=== PATIENT | male | born 1955 | race Caucasian/White ===

== ENCOUNTER 2018-04-12 18:18 | Emergency (ER) | payer OTHER ==
[2018-04-12] MEDS ORDERED: ONDANSETRON 4 MG/2 ML VIAL ONE (19:10)
[2018-04-12] MEDS ORDERED: KETOROLAC 30 MG/ML INJ ONE (19:10)
[2018-04-12 19:21] LABS: Urine Blood NEGATIVE (NEG); Urine Glucose NEGATIVE (NEG); Urine Protein NEGATIVE (NEG); Urine Specific Gravity 1.025 (1.005-1.030)
[2018-04-12 20:04] LABS: Urine Bacteria <20 /HPF (NONE SEEN); Urine Culture Reflex Order NOT NEEDED; Urine RBC <5 /HPF (NONE SEEN)
[2018-04-12 21:15] LABS: Absolute Lymphocytes (CBC) 0.8 K/uL (0.7-4.9); Absolute Monocytes 1.8 K/uL (0.1-1.3); Basophils % 0.2 % (0-1.3); Hematocrit 50.2 % (39.6-49.0)
[2018-04-12 21:18] LABS: Absolute Neutrophil 20.6 K/uL (1.8-8.0); Lymphocytes % 3.3 % (15.3-44.8); MPV 8.6 fL (7.6-11.3); Monocytes % 7.7 % (3.3-12.3); RBC Red Blood Cell Count 5.06 M/uL (4.33-5.43)
[2018-04-12 21:43] LABS: Albumin 3.9 g/dL (3.4-5.0); Bilirubin Direct 0.4 mg/dL (0-0.2); Bilirubin Total 1.1 mg/dL (0.2-1.0); Potassium 4.8 mmol/L (3.5-5.1); Protein, Total 8.2 g/dL (6.4-8.2)
[2018-04-12] MEDS ORDERED: NA CHLORIDE 0.9% 500 ML ONE (21:45)
[2018-04-12] MEDS ORDERED: NA CHLORIDE 0.9% 1,000 ML ONE ×2 (21:45→23:56)
[2018-04-12] MEDS ORDERED: MORPHINE 4 MG/ML SYR ONE (22:12)
[2018-04-12 22:29] LABS: Blood Morphology Comment NOT SEEN (NOT SEEN); Platelet Estimate ADEQ
[2018-04-12] MEDS ORDERED: METRONIDAZOLE 500mg IVPB 500 MG/100 ML BAG IV ONE (22:42)
[2018-04-12] MEDS ORDERED: CIPROFLOXACIN 400mg IV 400 MG/200 ML BAG IV ONE (22:42)
--- NOTE | 2018-04-12 23:04 | EDPHYS ---
Physician Documentation [facility] Name: Huey Jung Age: 62 yrs Sex: Male : 1955 Arrival Date: 04/12/2018 Time: 18:21 Bed 18 Private MD: ED Physician Shirley Frias HPI: 04/12 18:50 This 62 yrs old Male presents to ER via Ambulatory with complaints of cp Abdominal Pain. 18:50 The patient presents with abdominal pain right lower quadrant. Onset: The cp symptoms/episode began/occurred this morning. The symptoms do not radiate. Associated signs and symptoms: Pertinent positives: constipation, diarrhea, Pertinent negatives: blood in stools, chest pain, dysuria, fever, shortness of breath, testicular pain, vomiting. The symptoms are described as constant. Modifying factors: the symptoms are aggravated by movement, palpation. Severity of pain: in the emergency department the pain is unchanged. Historical: - Allergies: 18:26 PENICILLINS; hj - Home Meds: 18:26 Unable to obtain [Active]; hj - PMHx: 18:26 Hypertension; hj - PSHx: 18:26 Unable to obtain; hj - Immunization history:: Adult Immunizations up to date. - Social history:: Smoking status: Patient/guardian denies using tobacco. - Ebola Screening: : Patient negative for fever greater than or equal to 101.5 degrees Fahrenheit, and additional compatible Ebola Virus Disease symptoms Patient denies exposure to infectious person Patient denies travel to an Ebola-affected area in the 21 days before illness onset. ROS: 19:00 Constitutional: Negative for body aches, chills, fever, poor PO intake. cp 19:00 Eyes: Negative for injury, pain, redness, and discharge. cp 19:00 Cardiovascular: Negative for chest pain, edema, palpitations. cp 19:00 Respiratory: Negative for cough, shortness of breath, wheezing. cp 19:00 Abdomen/GI: Positive for abdominal pain, diarrhea, of the right lower quadrant, Negative for vomiting, constipation, dysphagia, black/tarry stool, rectal bleeding. 19:00 Back: Negative for pain at rest, pain with movement, radiated pain. 19:00 Skin: Negative for cellulitis, rash. 19:00 Neuro: Negative for altered mental status, dizziness, headache, weakness. 19:00 All other systems are negative. Exam: 19:05 Constitutional: The patient appears in no acute distress, alert, awake, cp non-diaphoretic, non-toxic, well developed, well nourished. 19:05 Head/Face: Normocephalic, atraumatic. cp 19:05 Eyes: Periorbital structures: appear normal, Pupils: equal, round, and reactive to light and accomodation, Extraocular movements: intact throughout, Conjunctiva: normal, no exudate, no injection, Sclera: no appreciated abnormality, Lids and lashes: appear normal, bilaterally. 19:05 ENT: External ear(s): are unremarkable, Ear canal(s): are normal, clear, TM's: are normal, no evidence of bulging, no erythema, Nose: is normal, Mouth: Lips: moist, Oral mucosa: pink and intact, moist, Posterior pharynx: is normal, airway is patent, no erythema, no exudate. 19:05 Chest/axilla: Inspection: normal, Palpation: is normal, no crepitus, no tenderness. 19:05 Cardiovascular: Rate: tachycardic, Rhythm: regular, Edema: is not appreciated, JVD: is not appreciated. 19:05 Respiratory: the patient does not display signs of respiratory distress, Respirations: normal, no use of accessory muscles, no retractions, no splinting, no tachypnea, labored breathing, is not present, Breath sounds: are clear throughout, no decreased breath sounds, no stridor, no wheezing. 19:05 Abdomen/GI: Inspection: abdomen appears normal, Bowel sounds: active, all quadrants, Palpation: soft, in all quadrants, moderate abdominal tenderness, in the right lower quadrant, rebound tenderness, is not appreciated, voluntary guarding, is elicited in the right lower quadrant. 19:05 Back: pain, is absent, ROM is normal. 19:05 Skin: cellulitis, is not appreciated, no rash present. Vital Signs: 18:39 BP 140 / 83; Pulse 115; Resp 18; Temp 98.7; Pulse Ox 94% on R/A; Weight 86.18 kg; hj Height 5 ft. 7 in. (170.18 cm); 20:00 BP 132 / 86; Pulse 119; Resp 20; Pulse Ox 98% ; rr5 21:00 BP 115 / 70; Pulse 116; Resp 19; Pulse Ox 98% ; rr5 21:40 BP 110 / 92; Pulse 110; Resp 17; Pulse Ox 99% ; rr5 22:41 BP 124 / 77; Pulse 105; Resp 17; Pulse Ox 95% on 3 lpm NC; rr5 22:41 Pain 6/10; rr5 23:40 BP 118 / 70; Pulse 100; Resp 19; Pulse Ox 96% on 3 lpm NC; rr5 04/13 00:30 BP 114 / 77; Pulse 92; Resp 17; Temp 98.6; Pulse Ox 95% on 3 lpm NC; rr5 01:30 BP 122 / 64; Pulse 71; Resp 19; Temp 98.7; Pulse Ox 95% on 3 lpm NC; rr5 04/12 18:39 Body Mass Index 29.76 (86.18 kg, 170.18 cm) 04/12 22:41 abdomen rr5 MDM: 18:50 Patient medically screened. cp 20:00 Differential diagnosis: appendicitis, bowel obstruction, diverticulitis, gastritis, cp pancreatitis, Pyelonephritis, Ureterolithiasis, urinary tract infection, colitis. 23:00 Data reviewed: vital signs, nurses notes, lab test result(s), radiologic studies, CT cp scan, and as a result, I will administer antibiotics Cipro and metronidazole. 23:00 Counseling: I had a detailed discussion with the patient and/or guardian regarding: the cp historical points, exam findings, and any diagnostic results supporting the discharge/admit diagnosis, lab results, radiology results, the need to transfer to another facility. Response to treatment: the patient's symptoms have mildly improved after treatment. 04/12 18:44 Order name: Urine Microscopic Only; Complete Time: 20:05 04/12 20:05 Interpretation: Reviewed. 04/12 18:47 Order name: Urine Dipstick--Ancillary (enter results); Complete Time: 20:05 04/12 20:06 Interpretation: Reviewed. 04/12 18:56 Order name: Basic Metabolic Panel; Complete Time: 22:05 04/12 22:43 Interpretation: Normal except: NA 135; GLUC 151; BUN 24; CRE 1.83; GFR 38. 04/12 18:56 Order name: CBC with Diff; Complete Time: 22:43 04/12 21:35 Interpretation: Normal except: WBC 23.2; HCT 50.2; JAC% 88.8; LYM% 3.3; MNA 1.8; NEUT A cp 20.6. 04/12 18:56 Order name: Creatinine for Radiology; Complete Time: 22:05 cp 04/12 18:56 Order name: Hepatic Function; Complete Time: 22:05 cp 04/12 23:02 Interpretation: Normal except: AST 42; BILIT 1.1; BILID 0.4; GLOB 4.3; A/G 0.9. cp 04/12 18:56 Order name: Lipase; Complete Time: 22:05 cp 04/12 21:52 Order name: Abdomen EDCT 04/12 22:20 Order name: XRAY Chest (1 view) 04/12 22:25 Order name: Manual Differential; Complete Time: 22:43 EDCT 04/12 22:43 Interpretation: Normal except: SEGS 84; BANDS [F] 8; LYM 1. cp 04/12 18:44 Order name: Urine Dipstick-Ancillary (obtain specimen); Complete Time: 18:44 hj 04/12 18:56 Order name: IV Saline Lock; Complete Time: 21:36 cp 04/12 18:56 Order name: Labs collected and sent; Complete Time: 21:36 cp 04/12 22:39 Order name: NPO; Complete Time: 22:43 cp Administered Medications: 00:00 Drug: NS 0.9% 1000 ml Route: IV; Rate: 1 bolus; Site: right forearm; rr5 04/13 01:32 Follow up: Response: No adverse reaction; IV Status: Completed infusion; IV Intake: rr5 1000ml 04/12 21:00 Drug: Zofran 4 mg Route: IVP; Site: right forearm; rr5 04/13 00:29 Follow up: Response: No adverse reaction rr5 04/12 21:03 Drug: TORadol 30 mg Route: IVP; Site: right forearm; rr5 04/13 00:29 Follow up: Response: No adverse reaction rr5 04/12 21:40 Drug: NS 0.9% 500 ml Route: IV; Rate: bolus; Site: right forearm; rr5 22:50 Follow up: Response: No adverse reaction; IV Status: Completed infusion; IV Intake: rr5 500ml 22:25 Not Given (Patient Refused): morphine 4 mg IVP once; if having pain rr5 22:43 Drug: morphine 4 mg Route: IVP; Site: right forearm; rr5 04/13 00:29 Follow up: Response: No adverse reaction rr5 04/12 22:44 Drug: Cipro 400 mg Volume: 200 ml; Route: IVPB; Infused Over: 60 mins; Site: right rr5 forearm; 23:50 Follow up: Response: No adverse reaction; IV Status: Completed infusion; IV Intake: rr5 200ml 22:50 Drug: NS 0.9% 500 ml Route: IV; Rate: bolus; Site: right forearm; rr5 23:50 Follow up: Response: No adverse reaction; IV Status: Completed infusion; IV Intake: rr5 500ml 23:55 Drug: metroNIDAZOLE 500 mg Volume: 100 ml; Route: IVPB; Infused Over: 30 mins; Site: rr5 right forearm; 04/13 00:27 Follow up: Response: No adverse reaction; IV Status: Completed infusion; IV Intake: rr5 100ml 01:33 Drug: NS 0.9% 1000 ml Route: IV; Rate: 100 ml/hr; Site: right forearm; rr5 01:33 Follow up: Response: No adverse reaction; IV Status: Infusion continued upon transfer rr5 Disposition: 04/12/18 23:03 Transfer ordered to [facility]. Diagnosis is Colitis. - Reason for transfer: Higher level of care. - Accepting physician is Dr Armendariz. - Condition is Stable. - Problem is new. - Symptoms have improved. Signatures: Dispatcher [employer] [facility] Ernesto Baker RN RN hj Page, Corey, PA PA cp Roque, Raymond, RN RN rr5 Corrections: (The following items were deleted from the chart) 04/12 21:35 21:30 Normal except: WBC 23.2; HCT 50.2; JAC% 88.8; LYM% 3.3. cp cp 21:52 18:57 Abdomen Pelvis W Con+CT.RAD.BRZ ordered. [facility] 22:25 21:27 CBC Smear Scan ordered. [facility] 04/13 00:17 04/12 23:03 04/12/2018 23:03 Transfer ordered to [facility]. Diagnosis is Colitis. cp Reason for transfer: Higher level of care. Accepting physician is Doctor. Condition is Stable. Problem is new. Symptoms have improved. cp 04/13 01:46 00:17 04/12/2018 23:03 Transfer ordered to [facility]. Diagnosis is Colitis. Reason rr5 for transfer: Higher level of care. Accepting physician is Dr Armendariz. Condition is Stable. Problem is new. Symptoms have improved. cp
--- NOTE | 2018-04-12 23:04 | ER ---
Nurse's Notes [facility] Name: Huey Jung Age: 62 yrs Sex: Male : 1955 Arrival Date: 04/12/2018 Time: 18:21 Bed 18 Private MD: Diagnosis: Colitis Presentation: 04/12 18:23 Presenting complaint: Patient states: coming from [facility] for follow up; S/P hj surgery on the L side of the neck last Thursday; presence of 8 mazin on the incision site; pt states" im hurting on my R side, of my abdomen and started having diarrhea";. Transition of care: correctional facility;. Onset of symptoms was April 12, 2018. Risk Assessment: Do you want to hurt yourself or someone else? Patient reports no desire to harm self or others. Initial Sepsis Screen: Does the patient meet any 2 criteria? No. Patient's initial sepsis screen is negative. Does the patient have a suspected source of infection? No. Patient's initial sepsis screen is negative. Care prior to arrival: None. 18:23 Method Of Arrival: Ambulatory 18:23 Acuity: VENESSA 4 hj Triage Assessment: 18:26 General: Appears in no apparent distress. uncomfortable, Behavior is calm, cooperative, hj appropriate for age. Pain: Denies pain. Historical: - Allergies: 18:26 PENICILLINS; hj - Home Meds: 18:26 Unable to obtain [Active]; hj - PMHx: 18:26 Hypertension; hj - PSHx: 18:26 Unable to obtain; hj - Immunization history:: Adult Immunizations up to date. - Social history:: Smoking status: Patient/guardian denies using tobacco. - Ebola Screening: : Patient negative for fever greater than or equal to 101.5 degrees Fahrenheit, and additional compatible Ebola Virus Disease symptoms Patient denies exposure to infectious person Patient denies travel to an Ebola-affected area in the 21 days before illness onset. Screenin:25 Abuse screen: Denies threats or abuse. Denies injuries from another. Nutritional hj screening: No deficits noted. Tuberculosis screening: No symptoms or risk factors identified. Fall Risk None identified. Assessment: 19:00 General: Appears in no apparent distress. uncomfortable, Behavior is calm, cooperative, rr5 appropriate for age, escorted by security guards dispatcher. Pain: Complains of pain in abdomen Pain does not radiate. Pain currently is 7 out of 10 on a pain scale. Quality of pain is described as aching, Pain began gradually, Is intermittent. 19:00 Neuro: Level of Consciousness is awake, alert, obeys commands, Oriented to person, rr5 place, time. Cardiovascular: Capillary refill < 3 seconds Patient's skin is warm and dry. Respiratory: Airway is patent Respiratory effort is even, unlabored, Respiratory pattern is regular, symmetrical. GI: Abdomen is round Reports lower abdominal pain, upper abdominal pain. : No signs and/or symptoms were reported regarding the genitourinary system. EENT: No signs and/or symptoms were reported regarding the EENT system. Derm: Skin is intact, Skin temperature is warm mazin at left jaw status post biopsy noted.redness around the hand cuff area on his wrist noted. Musculoskeletal: Circulation, motion, and sensation intact. Capillary refill < 3 seconds, Range of motion:. 20:00 Reassessment: Patient appears in no apparent distress at this time. No changes from rr5 previously documented assessment. no complaints made. 21:00 Reassessment: Patient appears in no apparent distress at this time. awaiting for rr5 creatinine result for Ct scan. 21:25 Reassessment: Hematology staff named Cristi called and relayed critical WBC result of cc3 23.2, PA Page informed. 22:10 Reassessment: refused for morphine injection he said he is feeling better now. rr5 22:41 Reassessment: patient complaints of abdominal pain and agreed for the morphine rr5 medication order. pain score of 6/10. 22:41 Pain: Complains of pain in abdomen Pain does not radiate. Pain currently is 6 out of 10 rr5 on a pain scale. Quality of pain is described as aching, Pain began gradually, Is intermittent. 23:30 Reassessment: spoke to chano staff from [facility],accepting doctor rr5 Uzma cerda the reel fed printer accepted the case. 04/13 00:30 Reassessment: Patient appears in no apparent distress at this time. Patient is alert, rr5 oriented x 3, equal unlabored respirations, skin warm/dry/pink. awaiting for [facility] for the transfer. 01:30 Reassessment: Patient appears in no apparent distress at this time. Patient is alert, rr5 oriented x 3, equal unlabored respirations, skin warm/dry/pink. handover to [facility] escorted by security guards dispatcher. vitally stable, no complaints made. Patient states symptoms have improved. Vital Signs: 04/12 18:39 BP 140 / 83; Pulse 115; Resp 18; Temp 98.7; Pulse Ox 94% on R/A; Weight 86.18 kg; hj Height 5 ft. 7 in. (170.18 cm); 20:00 BP 132 / 86; Pulse 119; Resp 20; Pulse Ox 98% ; rr5 21:00 BP 115 / 70; Pulse 116; Resp 19; Pulse Ox 98% ; rr5 21:40 BP 110 / 92; Pulse 110; Resp 17; Pulse Ox 99% ; rr5 22:41 BP 124 / 77; Pulse 105; Resp 17; Pulse Ox 95% on 3 lpm NC; rr5 22:41 Pain 6/10; rr5 23:40 BP 118 / 70; Pulse 100; Resp 19; Pulse Ox 96% on 3 lpm NC; rr5 04/13 00:30 BP 114 / 77; Pulse 92; Resp 17; Temp 98.6; Pulse Ox 95% on 3 lpm NC; rr5 01:30 BP 122 / 64; Pulse 71; Resp 19; Temp 98.7; Pulse Ox 95% on 3 lpm NC; rr5 04/12 18:39 Body Mass Index 29.76 (86.18 kg, 170.18 cm) hj 04/12 22:41 abdomen rr5 ED Course: 18:21 Patient arrived in ED. hj 18:25 Triage completed. hj 18:26 Arm band placed on right wrist. hj 18:26 Patient has correct armband on for positive identification. Bed in low position. Call hj light in reach. Side rails up X2. Security at bedside. 18:39 Ernesto Baker, ORAL is Primary Nurse. hj 18:50 Miguel Fine PA is PHCP. cp 18:50 Shirley Frias MD is Attending Physician. cp 20:45 Radiology exam delayed due to lab results not completed at this time. (BUN/Creatinine). vr 21:00 Inserted saline lock: 22 gauge in right forearm, using aseptic technique. Blood rr5 collected. 21:09 Radiology exam delayed due to lab results not completed at this time. (BUN/Creatinine). vr 21:57 CT completed. Patient tolerated procedure well. Patient moved to CT via wheelchair. vm2 Patient moved back from CT. 22:06 Abdomen In Process Unspecified. EDMS 22:52 XRAY Chest (1 view) In Process Unspecified. EDMS 02 01:36 No provider procedures requiring assistance completed. Patient transferred, IV remains rr5 in place. intact, No redness/swelling at site. Pressure dressing applied. Administered Medications: 04/12 00:00 Drug: NS 0.9% 1000 ml Route: IV; Rate: 1 bolus; Site: right forearm; rr5 04/13 01:32 Follow up: Response: No adverse reaction; IV Status: Completed infusion; IV Intake: rr5 1000ml 04/12 21:00 Drug: Zofran 4 mg Route: IVP; Site: right forearm; rr5 04/13 00:29 Follow up: Response: No adverse reaction rr5 04/12 21:03 Drug: TORadol 30 mg Route: IVP; Site: right forearm; rr5 04/13 00:29 Follow up: Response: No adverse reaction rr5 04/12 21:40 Drug: NS 0.9% 500 ml Route: IV; Rate: bolus; Site: right forearm; rr5 22:50 Follow up: Response: No adverse reaction; IV Status: Completed infusion; IV Intake: rr5 500ml 22:25 Not Given (Patient Refused): morphine 4 mg IVP once; if having pain rr5 22:43 Drug: morphine 4 mg Route: IVP; Site: right forearm; rr5 04/13 00:29 Follow up: Response: No adverse reaction rr5 04/12 22:44 Drug: Cipro 400 mg Volume: 200 ml; Route: IVPB; Infused Over: 60 mins; Site: right rr5 forearm; 23:50 Follow up: Response: No adverse reaction; IV Status: Completed infusion; IV Intake: rr5 200ml 22:50 Drug: NS 0.9% 500 ml Route: IV; Rate: bolus; Site: right forearm; rr5 23:50 Follow up: Response: No adverse reaction; IV Status: Completed infusion; IV Intake: rr5 500ml 23:55 Drug: metroNIDAZOLE 500 mg Volume: 100 ml; Route: IVPB; Infused Over: 30 mins; Site: rr5 right forearm; 04/13 00:27 Follow up: Response: No adverse reaction; IV Status: Completed infusion; IV Intake: rr5 100ml 01:33 Drug: NS 0.9% 1000 ml Route: IV; Rate: 100 ml/hr; Site: right forearm; rr5 01:33 Follow up: Response: No adverse reaction; IV Status: Infusion continued upon transfer rr5 Intake: 04/12 22:50 IV: 500ml; Total: 500ml. rr5 23:50 IV: 200ml; Total: 700ml. rr5 23:50 IV: 500ml; Total: 1200ml. rr5 02 00:27 IV: 100ml; Total: 1300ml. rr5 01:32 IV: 1000ml; Total: 2300ml. rr5 Outcome: 04/12 23:03 ER care complete, transfer ordered by . oskar 04/13 01:36 Transferred by ground EMS to other acute care facility: [facility]. rr5 Transfer form completed. Condition: stable Instructed on the need for transfer. 01:46 Patient left the ED. rr5 Signatures: Dispatcher [employer] Christy Grullon Henry, RN RN Miguel Matos PA PA Christy Garcia 2 Amy Jaramillo cc3 Rafael Lemons, RN RN rr5 Corrections: (The following items were deleted from the chart) 04/12 18:43 18:23 Presenting complaint: Patient states: coming from [facility] for follow up; S/P hj surgery on the L side of the neck last Thursday; presence of 8 mazin on the incision site; hj 21:27 21:25 Reassessment: Hematology staff named Cristi called and relayed critical WBC result cc3 of 23.2 cc3
[2018-04-13] MEDS ORDERED: NA CHLORIDE 0.9% 1,000 ML ONE (01:40)
--- NOTE | 2018-04-13 08:32 | RAD REPORT ---
EXAM DESCRIPTION: RAD - Chest Single View - 04/12/2018 10:52 pm CLINICAL HISTORY: abdominal pain Chest pain. COMPARISON: No comparisons FINDINGS: Portable technique limits examination quality. The lungs are underinflated but grossly clear. The heart is normal in size. No displaced fractures. IMPRESSION: Underinflated lungs.
--- NOTE | 2018-04-13 22:28 | RAD REPORT ---
EXAM DESCRIPTION: CT Abdomen and Pelvis Without Intravenous Contrast CLINICAL HISTORY: The patient is 62 years old and is Male; RLQ abdomen pain. COMPARISON: No relevant prior studies available. TECHNIQUE: Axial computed tomography images of the abdomen and pelvis without intravenous contrast. Sagittal and coronal reformatted images were created and reviewed. This CT exam was performed using o ne or more of the following dose reduction techniques: Automated exposure control, adjustment of the mA and/or kV according to patient size, and/or use of iterative reconstruction technique. FINDINGS: Lung bases: There is mild subsegmental atelectasis and/or scarring in bilateral lung bases . ABDOMEN: Liver: The liver is small with a nodular contour. Multiple foci of air peripherally within the liver suggestive of portal venous gas is noted. Gallbladder and bile ducts: No calcified stones. No ductal dilation. Pancreas: Unremarkable. No ductal dilation. Spleen: Unremarkable. Adrenals: Unremarkable. No mass. Kidneys and ureters: No obstructing stones. No hydronephrosis. Stomach and bowel: The stomach is moderately distended with oral contrast. Oral contrast is noted wit hin the distal small bowel which is normal in caliber. Extensive colonic wall thickening with surroun ding inflammatory stranding and associated pneumatosis involving the cecum is present. Pneumatosis ex tends into the proximal ascending colon. Mucosal thickening has a somewhat masslike appearance. The r emainder of the colon is normal with both contrast and stool throughout. There is no bowel obstructio n. PELVIS: Appendix: The appendix is normal in caliber without surrounding inflammation. Bladder: The bladder not well-distended. Reproductive: Unremarkable as visualized. ABDOMEN and PELVIS: Intraperitoneal space: Unremarkable. No free air. No significant fluid collection. Bones/joints: Multilevel degenerative change of the spine is present. Soft tissues: The soft tissues are normal. Vasculature: Atherosclerosis of the vasculature is present. The vessels are normal in caliber. Foci o f mesenteric gas within the right lower quadrant and left lower quadrant are present. Lymph nodes: Unremarkable. No enlarged lymph nodes. IMPRESSION: 1. Extensive colonic wall thickening which appears masslike with surrounding inflammatio n and associated pneumatosis involving the cecum. While findings may be secondary to an extensive inf ectious, inflammatory or ischemic process, underlying malignancy such as lymphoma is high within the differential. 2. Small amount of portal venous and mesenteric venous gas. Electronically signed by Krystina Lao MD 04/12/2018 10:13 PM [employer] WORKER Due to temporary technical issues with the PACS/Fluency reporting system, reports are being signed by the in house radiologist as a courtesy to ensure prompt reporting. The interpreting radiologist is f ully responsible for the content of the report.
== END 2018-04-13 01:46 | disposition short-term general hospital (02) ==
LOC: ER 18:18
DX: K52.9 Noninfective gastroenteritis and colitis, unspecified (principal); I10 Essential (primary) hypertension; Z88.0 Allergy status to penicillin
CPT/HCPCS: 36415; 71045; 74176; 80048; 80076; 81003; 81015; 83690; 85025; 96361; 96365; 96367; 96375; 99285; J0744; J2405; J7030